=== PATIENT | male | born 2000 | race Hispanic/Latino ===

== ENCOUNTER 2023-03-23 22:33 | Inpatient (IN) | payer OTHER, MEDICAID, SELFPAY ==
[2023-03-23] VITALS (15 sets, daily range): BP systolic 102–177; BP diastolic 58–121; PULSE 109–133; RESP 4–25; TEMP 35.9; O2SAT 51–96
--- NOTE | 2023-03-23 22:44 | ED.GENADULT ---
HPI - General Adult General Chief complaint: Unresponsive Stated complaint: syncope/poss seizure Time Seen by Provider: 03/23/23 22:44 Source: other (Friend) Mode of arrival: Family Vehicle Limitations: other (Unconscious) History of Present Illness HPI narrative: Initially patient unable to provide any HPI review of systems. He arrives by private vehicle driven by a friend. It was reported that the friend in the patient were in the same house. The friend came down the stairs and found the patient sitting on the couch. Was unresponsive. Was no signs of trauma. Initially the patient's friend thought that he was having a seizure although the patient has no history of seizures. Upon arrival the patient had to be extricated from the car by nursing staff. Was brought immediately back to the resuscitation room. Patient unresponsive, vomiting, cyanotic in color and apneic. Related Data Allergies Allergy/AdvReac Type Severity Reaction Status Date / Time Sulfa (Sulfonamide Allergy Verified 03/23/23 23:04 Antibiotics) Review of Systems Review of Systems ROS Unobtainable: Unobtainable due to medical condition Patient History Social History Smoking Status: Never smoker Exam Initial Vital Signs Initial Vital Signs: Vital Signs Temperature 96.7 F L 03/23/23 22:42 Pulse Rate 133 H 03/23/23 22:42 Respiratory Rate 4 L 03/23/23 22:42 Blood Pressure 176/121 H 03/23/23 22:42 Pulse Oximetry 51 L 03/23/23 22:42 Oxygen Delivery Method Room Air 03/23/23 22:42 Const General: ill appearing HENIA Head: other (Bruising to forehead that is nontender) Resp Other: Initially apneic Cardio Rate: tachycardic GI Inspection: non-distended Skin Other: Small bruise to forehead Neuro Other: Patient is nonresponsive Extrem Other: No gross deformities Course Orders Ordered: ED Orders 03/23/23 22:45 XR chest 1V Stat 03/23/23 22:50 Comprehensive Metabolic Panel Stat Ethanol (ETOH) Stat Lipase Stat 03/23/23 23:09 Complete Blood Count AUTO DIFF Stat 03/24/23 01:51 EKG-12 Lead Stat 03/24/23 02:46 Urine Drug Screen, Rapid Stat Sodium Chloride (Normal Saline 0.9%) 1,000 mls @ 125 mls/hr IV CONT DONG Last Admin: 03/23/23 23:12 Dose: 125 mls/hr Documented By: GRACIA Naloxone HCl 2 mg/ Sodium (Chloride) 500 mls @ 250 mls/hr IV TITRATE DONG; Protocol Last Admin: 03/24/23 02:55 Dose: 1 mg/hr, 250 mls/hr Documented By: Titration: 03/24/23 02:26 Dose: Infused Documented By: Admin: 03/24/23 00:26 Dose: 1 mg/hr, 250 mls/hr Documented By: LUCA Discontinued Medications Benzocaine (Benzocaine/Menthol 1 Hector Pkt) 1 each PO NOW ONE Stop: 03/24/23 02:55 Last Admin: 03/24/23 03:05 Dose: 1 each Documented By: GRACIA Piperacillin Sod/Tazobactam (Sod 4.5 gm/ Sodium Chloride) 100 mls @ 200 mls/hr IV NOW ONE Stop: 03/24/23 00:20 Last Infusion: 03/24/23 01:18 Dose: Infused Documented By: Admin: 03/24/23 00:34 Dose: 200 mls/hr Documented By: LUCA Naloxone HCl (Naloxone 1 Mg/Ml Syringe) 2 mg IV NOW ONE Stop: 03/23/23 22:45 Last Admin: 03/23/23 22:45 Dose: 2 mg Documented By: GRACIA Naloxone HCl (Naloxone 1 Mg/Ml Syringe) 2 mg IV NOW ONE Stop: 03/24/23 00:14 Last Admin: 03/24/23 00:15 Dose: 2 mg Documented By: LUCA Ondansetron HCl (Ondansetron 4 Mg/2 Ml Inj) 4 mg IV NOW ONE Stop: 03/23/23 22:45 Last Admin: 03/23/23 22:45 Dose: 4 mg Documented By: GRACIA Ondansetron HCl (Ondansetron 4 Mg/2 Ml Inj) 4 mg IV NOW ONE Stop: 03/24/23 00:19 Last Admin: 03/24/23 00:26 Dose: 4 mg Documented By: LUCA Vital Signs Vital signs: Vital Signs - 8 hr 03/23/23 22:42 03/23/23 22:52 03/23/23 22:56 Temperature 96.7 F L Pulse Rate 133 H 118 H Respiratory Rate 4 L 23 Blood Pressure 176/121 H 173/110 H Pulse Oximetry 51 L 96 Oxygen Delivery Method Room Air Oxygen Flow Rate 03/23/23 22:56 03/23/23 23:00 03/23/23 23:00 Temperature Pulse Rate 117 H 124 H Respiratory Rate 23 20 Blood Pressure 177/106 H Pulse Oximetry 91 92 Oxygen Delivery Method Oxygen Flow Rate 03/23/23 23:05 03/23/23 23:05 03/23/23 23:10 Temperature Pulse Rate 119 H 113 H Respiratory Rate 21 21 Blood Pressure 138/87 Pulse Oximetry 89 L 96 Oxygen Delivery Method Nasal Cannula Non -Rebreather Oxygen Flow Rate 2 15 03/23/23 23:10 03/23/23 23:15 03/23/23 23:15 Temperature Pulse Rate 110 H Respiratory Rate 21 Blood Pressure 130/81 144/86 H Pulse Oximetry 93 Oxygen Delivery Method Oxygen Flow Rate 03/23/23 23:21 03/23/23 23:21 03/23/23 23:25 Temperature Pulse Rate 109 H 111 H Respiratory Rate 21 17 Blood Pressure 102/61 Pulse Oximetry 94 91 Oxygen Delivery Method Oxygen Flow Rate 03/23/23 23:25 03/23/23 23:30 03/23/23 23:30 Temperature Pulse Rate 113 H Respiratory Rate 22 Blood Pressure 130/77 133/84 Pulse Oximetry 91 Oxygen Delivery Method Oxygen Flow Rate 03/23/23 23:35 03/23/23 23:35 03/23/23 23:41 Temperature Pulse Rate 119 H 119 H Respiratory Rate 21 25 H Blood Pressure 136/84 Pulse Oximetry 92 91 Oxygen Delivery Method Oxygen Flow Rate 03/23/23 23:41 03/23/23 23:46 03/23/23 23:46 Temperature Pulse Rate 119 H Respiratory Rate 19 Blood Pressure 122/58 L 138/80 Pulse Oximetry 88 L Oxygen Delivery Method Oxygen Flow Rate 03/23/23 23:50 03/23/23 23:50 03/23/23 23:55 Temperature Pulse Rate 117 H 116 H Respiratory Rate 17 20 Blood Pressure 131/60 Pulse Oximetry 93 92 Oxygen Delivery Method Oxygen Flow Rate 03/23/23 23:55 03/24/23 00:00 03/24/23 00:00 Temperature Pulse Rate 126 H Respiratory Rate 25 H Blood Pressure 129/63 114/57 L Pulse Oximetry 89 L Oxygen Delivery Method Oxygen Flow Rate 03/24/23 00:05 03/24/23 00:05 03/24/23 00:10 Temperature Pulse Rate 121 H 123 H Respiratory Rate 21 24 Blood Pressure 123/90 Pulse Oximetry 90 L 89 L Oxygen Delivery Method Oximask Oxygen Flow Rate 6 03/24/23 00:10 03/24/23 00:15 03/24/23 00:15 Temperature Pulse Rate 123 H Respiratory Rate Blood Pressure 120/69 147/70 H Pulse Oximetry 87 L Oxygen Delivery Method Oxygen Flow Rate 03/24/23 00:30 03/24/23 00:30 03/24/23 00:45 Temperature Pulse Rate 123 H 122 H Respiratory Rate 20 32 H Blood Pressure 123/73 Pulse Oximetry 97 97 Oxygen Delivery Method Oxygen Flow Rate 03/24/23 00:45 03/24/23 01:00 03/24/23 01:00 Temperature Pulse Rate 121 H Respiratory Rate 36 H Blood Pressure 124/72 123/68 Pulse Oximetry 93 Oxygen Delivery Method Oxygen Flow Rate 03/24/23 01:15 03/24/23 01:15 03/24/23 01:30 Temperature Pulse Rate 117 H 116 H Respiratory Rate 29 H 37 H Blood Pressure 126/65 Pulse Oximetry 95 93 Oxygen Delivery Method Oximask Oxygen Flow Rate 03/24/23 01:30 03/24/23 01:45 03/24/23 01:45 Temperature Pulse Rate 116 H Respiratory Rate 35 H Blood Pressure 127/70 128/66 Pulse Oximetry 93 Oxygen Delivery Method Oxygen Flow Rate 03/24/23 02:00 03/24/23 02:00 03/24/23 02:30 Temperature Pulse Rate 120 H Respiratory Rate 36 H Blood Pressure 132/81 119/74 Pulse Oximetry 96 Oxygen Delivery Method Oxygen Flow Rate 03/24/23 02:30 Temperature Pulse Rate 119 H Respiratory Rate 35 H Blood Pressure Pulse Oximetry 93 Oxygen Delivery Method Oxygen Flow Rate Medical Decision Making Lab Data Lab results reviewed: Yes I reviewed the patient's lab results. 03/23/23 23:09 03/23/23 22:50 Labs: Lab Results 03/23/23 03/23/23 03/24/23 Range/Units 22:50 23:09 02:46 WBC 14.1 H (4.5-11.0) X10^3/uL RBC 5.33 (4.5-5.9) X10^6/uL Hgb 16.6 (13.5-17.5) g/dL Hct 49.2 (41-53) % MCV 92.2 (80-100) fL MCH 31.1 (26-34) PG MCHC 33.7 (30-36) % RDW 13.2 (11.6-14.8) % Plt Count 328 (150-400) X10^3/uL Neut % (Auto) 45.8 L (50-75) % Lymph % (Auto) 50.2 H (25-40) % [place] % (Auto) 3.8 (3-14) % Eos % (Auto) 0.1 L (2-4) % Baso % (Auto) 0.1 (0-2) % Neut # (Auto) 6500 (7222-4891) /uL Lymph # (Auto) 7100 H (6403-5085) /uL [place] # (Auto) 500 (0-900) /uL Eos # (Auto) 0 (0-450) /uL Baso # (Auto) 0 (0-100) /uL Sodium 138 (137-145) mmol/L Potassium 3.6 (3.4-5.1) mmol/L Chloride 102 (98-107) mmol/L Carbon Dioxide 24 (22-32) mmol/L BUN 15 (9-20) mg/dL Creatinine 1.20 (0.66-1.25) mg/dL Estimated GFR > 60 (>60) mL/min BUN/Creatinine Ratio 12.5 (6-22) Glucose 255 H (70-100) mg/dL Calcium 8.7 (8.4-10.2) mg/dL Total Bilirubin 0.5 (0.2-1.3) mg/dL AST 106 H (17-59) IU/L ALT 167 H (<50) IU/L Alkaline Phosphatase 72 (38-126) U/L Total Protein 7.2 (6.3-8.2) g/dL Albumin 4.2 (3.5-5.0) g/dL Globulin 3.0 (1.7-4.1) g/dL Albumin/Globulin Ratio 1.4 (1.0-2.8) Lipase 73 (23-300) U/L U Opiates 300ng/mL cut Negative (Negative) Ur Oxycodone Screen Negative (Negative) Urine Methadone Screen Negative (Negative) Ur Barbiturates Screen Negative (Negative) U Tricyclic Antidepress Negative (Negative) Ur Phencyclidine Scrn Negative (Negative) Ur Amphetamines Screen Negative (Negative) U Methamphetamines Scrn Negative (Negative) Ur MDMA Scrn (Ecstasy) Negative (Negative) U Benzodiazepines Scrn Negative (Negative) Urine Cocaine Screen Negative (Negative) U Marijuana (THC) Screen Positive H (Negative) Urine pH Normal (Normal) Urine Specific [place] Normal (Normal) Ethyl Alcohol < 10 ( - 10) mg/dL Ur Creatinine Normal (Normal) Imaging Data Chest x-ray: Radiologist's Impression: PROCEDURE: XR CHEST 1V INDICATIONS: overdose and hypoxia TECHNIQUE: One view of the chest was acquired. COMPARISON: None. FINDINGS: Surgical changes and devices: None. Lungs and pleura: Lungs are clear. No pleural effusions or pneumothorax. Mediastinum: Mediastinal contours appear normal. Heart size is normal. Bones and chest wall: No suspicious bony lesions. Overlying soft tissues appear unremarkable. IMPRESSION: No acute cardiopulmonary abnormality is seen. ECG Data Attestation: I personally reviewed and interpreted this ECG as follows: Interpretation: Sinus tachycardia Ventricular rate 119 Normal axis Normal QRS Normal QTC No ST T wave changes MDM Narrative Medical decision making narrative: Patient initially brought to the resuscitation room. Was found to be apneic, vomiting and cyanotic in color. Respirations were immediately assisted with bag-valve mask. A nasal trumpet was placed. IV access was started. Initial O2 saturations in the 50s. 2 mg of Narcan were administered IV. Very shortly afterwards the patient became awake. Breathing on his own. Continues to have vomiting. We were then able to talk with the patient. He has no history of seizures. He does not remember the event. He states that he took ?pills? but could not specifically remember what he took. This is never happened to him in the past. He is remained hypoxic requiring oxygen by nasal cannula and occasionally by non-rebreather. He continues to cough up pink frothy sputum. Patient did have another episode of vomiting and coughing up pink frothy sputum. He continues to require oxygen to maintain saturations greater than 90%. Patient states he started to become more sleepy. His oxygen was now dropping below 90%. He was given another dose of Narcan and will start him on a Narcan drip. Patient was also given a dose of Zosyn for presumed aspiration. Patient has been stable since being started on a Narcan drip. Patient obviously took some sort of opioid in a pill form but either does not know what he took or will not say. I have low suspicion that this was seizure activity. Patient is still requiring oxygen. Discussed the case with Dr. Handy hospitalist on-call and we will admit for further evaluation and treatment. Critical Care Time Critical Care Time Critical Care Time: Yes Total Critical Care Time: 45 Attestation: The high probability of a clinically significant, sudden or life threatening deterioration of the [respiratory, neurologic, cardiovascular] system(s) required my full and direct attention, intervention and personal management. The aggregate critical care time was [45] minutes. This time is in addition to time spent performing reported procedures but includes the following: [x] Data Review and interpretation [x] Patient assessment and monitoring of vital signs [x Documentation [x] Medication orders and management Discharge Plan Departure Patient Disposition: Admitted As Inpatient Clinical Impression: Drug overdose, Hypoxia, Aspiration into respiratory tract Admit Date/Time: 03/24/23 03:48 Admit Provider: Reese Serna
[2023-03-23] MEDS: ONDANSETRON 4 MG/2 ML INJ IV (22:45)
[2023-03-23] MEDS: NALOXONE 1 MG/ML SYRINGE 2 MG IV (22:45)
--- NOTE | 2023-03-23 22:45 | DI.RAD.S_ITS ---
PROCEDURE: XR CHEST 1V INDICATIONS: overdose and hypoxia TECHNIQUE: One view of the chest was acquired. COMPARISON: None. FINDINGS: Surgical changes and devices: None. Lungs and pleura: Lungs are clear. No pleural effusions or pneumothorax. Mediastinum: Mediastinal contours appear normal. Heart size is normal. Bones and chest wall: No suspicious bony lesions. Overlying soft tissues appear unremarkable. IMPRESSION: No acute cardiopulmonary abnormality is seen. Dictated by: Sonny Fournier M.D. on 03/24/2023 at 0:01 Approved by: Sonny Fournier M.D. on 03/24/2023 at 0:02
--- NOTE | 2023-03-23 22:53 | RT ---
Responded to an unconcious male with saturations in the 50's. Pt was given Narcan and woke up and immediately started to vomiting and spitting up blood. Pt was put on a NC at 6lpm. Sats only came up to low 80's so a NRB at 15lpm was put on. Sats finally came up to low to mid 90's. Pt was able to communicate and keep saturations up.
[2023-03-23] MEDS: SODIUM CHLORIDE 0.9% 1,000 ML 125 ML IV (23:12)
[2023-03-23 23:21] LABS: Add Manual Diff / Slide Review NO; Basophils Absolute Auto 0 /uL (0-100); Basophils Percent Auto 0.1 % (0-2); Eosinophils Absolute Auto 0 /uL (0-450); Eosinophils Percent Auto 0.1 % (2-4); Hematocrit 49.2 % (41-53); Hemoglobin 16.6 g/dL (13.5-17.5); Lymphocytes Absolute Auto 7100 /uL (1100-4500); Lymphocytes Percent Auto 50.2 % (25-40); Mean Corpuscular HGB Conc 33.7 % (30-36); Mean Corpuscular Hemoglobin 31.1 PG (26-34); Mean Corpuscular Volume 92.2 fL (80-100); Monocytes Absolute Auto 500 /uL (0-900); Monocytes Percent Auto 3.8 % (3-14); Neutrophils Absolute Auto 6500 /uL (1500-7000); Neutrophils Percent Auto 45.8 % (50-75); Platelet Count 328 X10^3/uL (150-400); Red Blood Cell Count 5.33 X10^6/uL (4.5-5.9); Red Cell Distribution Width 13.2 % (11.6-14.8); White Blood Cell Count 14.1 X10^3/uL (4.5-11.0)
[2023-03-23 23:37] LABS: Alanine Aminotransferase 167 IU/L (<50); Albumin 4.2 g/dL (3.5-5.0); Albumin Globulin Ratio 1.4 (1.0-2.8); Alkaline Phosphatase 72 U/L (38-126); Aspartate Aminotransferase 106 IU/L (17-59); BUN Creatinine Ratio 12.5 (6-22); Bilirubin Total 0.5 mg/dL (0.2-1.3); Blood Urea Nitrogen 15 mg/dL (9-20); Calcium 8.7 mg/dL (8.4-10.2); Carbon Dioxide 24 mmol/L (22-32); Chloride 102 mmol/L (98-107); Estimated Glomerular Filt Rate > 60 mL/min (>60); Ethanol (ETOH) < 10 mg/dL; Glucose 255 mg/dL (70-100); HEMOLYSIS 36 (0-50); Lipase 73 U/L (23-300); Potassium 3.6 mmol/L (3.4-5.1); Sodium 138 mmol/L (137-145); Total Protein 7.2 g/dL (6.3-8.2)
[2023-03-24] VITALS (65 sets, daily range): BP systolic 114–147; BP diastolic 57–90; PULSE 105–133; RESP 16–57; TEMP 37–37.5; O2SAT 87–99; BMI 29.0
[2023-03-24] MEDS: NALOXONE 1 MG/ML SYRINGE 2 MG IV (00:15)
[2023-03-24] MEDS: NALOXONE 2 MG in SODIUM CHLORIDE 0.9% 500 ML 250 MG IV ×4 (00:26→08:19)
[2023-03-24] MEDS: ONDANSETRON 4 MG/2 ML INJ IV ×2 (00:26→05:48)
[2023-03-24] MEDS: PIPERACILLIN/TAZO 4.5 GM in SODIUM CHLORIDE 0.9% 100 ML IV (00:34)
[2023-03-24] MEDS: BENZOCAINE/MENTHOL 1 LOZ PKT 1 EACH PO ×4 (03:05→19:56)
[2023-03-24 03:23] LABS: UR Morphine/Opiate cutoff 300 Negative (Negative); Ur Creatinine Normal (Normal); Ur Specific Gravity Normal (Normal); Urine Amphetamines Negative (Negative); Urine Cocaine Negative (Negative); Urine Tetrahydrocannabinol Positive (Negative); Urine pH Normal (Normal)
[2023-03-24 03:24] LABS: Urine Barbiturates Negative (Negative); Urine Benzodiazepines Negative (Negative); Urine MDMA Negative (Negative); Urine Methadone Negative (Negative); Urine Methamphetamines Negative (Negative); Urine Oxycodone Negative (Negative); Urine Phencyclidine Negative (Negative); Urine Tricyclic Antidepressant Negative (Negative)
--- NOTE | 2023-03-24 04:34 | PM.HP.1 ---
History of Present Illness History of Present Illness Date Patient Seen: 03/24/23 Chief complaint: syncope/poss seizure Narrative: 30 y/o brought by a friend after he became unresponsive from drugs that he took. In the ED hypoxemic, requires 5-6 L of oxygen. Suspected synthetic narcotic as the toxscreen positive only for pot. In the ED he was doing better after the Narcan but improvement did not last too long so started on Narcan drip. Borderline tachycardic, not hypotensive. [facility] Social History Smoking Status: Never smoker Comment: he rarely takes drugs Lives alone [employer] Home Medications and Allergies Home Medications Medication Instructions Recorded Confirmed Type No Known Home Medications 03/24/23 03/24/23 History Allergies Allergy/AdvReac Type Severity Reaction Status Date / Time Sulfa (Sulfonamide Allergy Verified 03/23/23 23:04 Antibiotics) Review of Systems Constitutional Comments: w/o chills or fever Cardiovascular Comments: w/o palpitations, had episodic chest pressure Respiratory Comments: short of breath Gastrointestinal Comments: w/o complaints Genitourinary Comments: w/o complaints Neurologic Comments: w/o muscle weakness or numbness Psychiatric Comments: w/o Hx of anxiety and depression Exam Vital Signs (past 8 hours): - 03/23/23 22:42 03/23/23 22:52 03/23/23 22:56 Temperature 96.7 F L Pulse Rate 133 H 118 H Respiratory Rate 4 L 23 Blood Pressure 176/121 H 173/110 H Pulse Oximetry 51 L 96 Oxygen Delivery Method Room Air Oxygen Flow Rate 03/23/23 22:56 03/23/23 23:00 03/23/23 23:00 Temperature Pulse Rate 117 H 124 H Respiratory Rate 23 20 Blood Pressure 177/106 H Pulse Oximetry 91 92 Oxygen Delivery Method Oxygen Flow Rate 03/23/23 23:05 03/23/23 23:05 03/23/23 23:10 Temperature Pulse Rate 119 H 113 H Respiratory Rate 21 21 Blood Pressure 138/87 Pulse Oximetry 89 L 96 Oxygen Delivery Method Nasal Cannula Non -Rebreather Oxygen Flow Rate 2 15 03/23/23 23:10 03/23/23 23:15 03/23/23 23:15 Temperature Pulse Rate 110 H Respiratory Rate 21 Blood Pressure 130/81 144/86 H Pulse Oximetry 93 Oxygen Delivery Method Oxygen Flow Rate 03/23/23 23:21 03/23/23 23:21 03/23/23 23:25 Temperature Pulse Rate 109 H 111 H Respiratory Rate 21 17 Blood Pressure 102/61 Pulse Oximetry 94 91 Oxygen Delivery Method Oxygen Flow Rate 03/23/23 23:25 03/23/23 23:30 03/23/23 23:30 Temperature Pulse Rate 113 H Respiratory Rate 22 Blood Pressure 130/77 133/84 Pulse Oximetry 91 Oxygen Delivery Method Oxygen Flow Rate 03/23/23 23:35 03/23/23 23:35 03/23/23 23:41 Temperature Pulse Rate 119 H 119 H Respiratory Rate 21 25 H Blood Pressure 136/84 Pulse Oximetry 92 91 Oxygen Delivery Method Oxygen Flow Rate 03/23/23 23:41 03/23/23 23:46 03/23/23 23:46 Temperature Pulse Rate 119 H Respiratory Rate 19 Blood Pressure 122/58 L 138/80 Pulse Oximetry 88 L Oxygen Delivery Method Oxygen Flow Rate 03/23/23 23:50 03/23/23 23:50 03/23/23 23:55 Temperature Pulse Rate 117 H 116 H Respiratory Rate 17 20 Blood Pressure 131/60 Pulse Oximetry 93 92 Oxygen Delivery Method Oxygen Flow Rate 03/23/23 23:55 03/24/23 00:00 03/24/23 00:00 Temperature Pulse Rate 126 H Respiratory Rate 25 H Blood Pressure 129/63 114/57 L Pulse Oximetry 89 L Oxygen Delivery Method Oxygen Flow Rate 03/24/23 00:05 03/24/23 00:05 03/24/23 00:10 Temperature Pulse Rate 121 H 123 H Respiratory Rate 21 24 Blood Pressure 123/90 Pulse Oximetry 90 L 89 L Oxygen Delivery Method Oximask Oxygen Flow Rate 6 03/24/23 00:10 03/24/23 00:15 03/24/23 00:15 Temperature Pulse Rate 123 H Respiratory Rate Blood Pressure 120/69 147/70 H Pulse Oximetry 87 L Oxygen Delivery Method Oxygen Flow Rate 03/24/23 00:30 03/24/23 00:30 03/24/23 00:45 Temperature Pulse Rate 123 H 122 H Respiratory Rate 20 32 H Blood Pressure 123/73 Pulse Oximetry 97 97 Oxygen Delivery Method Oxygen Flow Rate 15 03/24/23 00:45 03/24/23 01:00 03/24/23 01:00 Temperature Pulse Rate 121 H Respiratory Rate 36 H Blood Pressure 124/72 123/68 Pulse Oximetry 93 Oxygen Delivery Method Oxygen Flow Rate 03/24/23 01:15 03/24/23 01:15 03/24/23 01:30 Temperature Pulse Rate 117 H 116 H Respiratory Rate 29 H 37 H Blood Pressure 126/65 Pulse Oximetry 95 93 Oxygen Delivery Method Oximask Oxygen Flow Rate 10 03/24/23 01:30 03/24/23 01:45 03/24/23 01:45 Temperature Pulse Rate 116 H Respiratory Rate 35 H Blood Pressure 127/70 128/66 Pulse Oximetry 93 Oxygen Delivery Method Oxygen Flow Rate 03/24/23 02:00 03/24/23 02:00 03/24/23 02:30 Temperature Pulse Rate 120 H Respiratory Rate 36 H Blood Pressure 132/81 119/74 Pulse Oximetry 96 Oxygen Delivery Method Oxygen Flow Rate 03/24/23 02:30 Temperature Pulse Rate 119 H Respiratory Rate 35 H Blood Pressure Pulse Oximetry 93 Oxygen Delivery Method Oxygen Flow Rate Oxygen Delivery Method Oximask Oxygen Flow Rate 10 Const Other: Laying in bed with oxygen mask on, in no distress, appears sleepy [facility] Other: normocephalic Eyes Other: equal pupils, EOMI Resp Other: Decreased respiratory effort Cardio Other: tachycardic, regular GI Other: abdomen not distended or tender Skin Other: w/o rashes Neuro Other: w/o focal deficits Extrem Other: w/o swelling Psych Other: lucid Objective ECG Impression: Sinus tachycardia, w/o ischemic changes Labs 03/23/23 23:09 03/23/23 22:50 Labs: Laboratory Results - last 24 hr 03/23/23 03/23/23 03/24/23 22:50 23:09 02:46 WBC 14.1 H RBC 5.33 Hgb 16.6 Hct 49.2 MCV 92.2 MCH 31.1 MCHC 33.7 RDW 13.2 Plt Count 328 Neut % (Auto) 45.8 L Lymph % (Auto) 50.2 H [place] % (Auto) 3.8 Eos % (Auto) 0.1 L Baso % (Auto) 0.1 Neut # (Auto) 6500 Lymph # (Auto) 7100 H [place] # (Auto) 500 Eos # (Auto) 0 Baso # (Auto) 0 Sodium 138 Potassium 3.6 Chloride 102 Carbon Dioxide 24 BUN 15 Creatinine 1.20 Estimated GFR > 60 BUN/Creatinine Ratio 12.5 Glucose 255 H Calcium 8.7 Total Bilirubin 0.5 AST 106 H ALT 167 H Alkaline Phosphatase 72 Total Protein 7.2 Albumin 4.2 Globulin 3.0 Albumin/Globulin Ratio 1.4 Lipase 73 U Opiates 300ng/mL cut Negative Ur Oxycodone Screen Negative Urine Methadone Screen Negative Ur Barbiturates Screen Negative U Tricyclic Antidepress Negative Ur Phencyclidine Scrn Negative Ur Amphetamines Screen Negative U Methamphetamines Scrn Negative Ur MDMA Scrn (Ecstasy) Negative U Benzodiazepines Scrn Negative Urine Cocaine Screen Negative U Marijuana (THC) Screen Positive H Urine pH Normal Urine Specific [place] Normal Ethyl Alcohol < 10 Ur Creatinine Normal Assessment & Plan Assessment and plan (1) Drug overdose: Status: Acute (2) Acute hypoxemic respiratory failure: Status: Acute (3) Aspiration into respiratory tract: Status: Acute Assessment & Plan narrative: 1. Drug OD possibly fentanyl - telemetry monitoring in ICU, Narcan drip 2. Acute Hypoxemic Respiratory Failure - Decreased respiratory drive Without Hx of lung disease Oxygen prn No need for BiPAP for now Aspiration could be contributing 3. Aspiration - CXR negative but too early Likely pneumonitis / PNA Empiric Augmentin 4. Sinus Tachycardia - w/o ischemic changes on ECG DVT prophylaxis - SCDs
--- NOTE | 2023-03-24 05:56 | PC.NURSE ---
Pt called into room states he was going to throw up. gave emesis bag and received order for zofran, pt continues with red emesis. Pt removed oxymask during vomiting episode and Spo2 sats dropped to 80% on Room air. Pt able to recover with oximask at 4L. assisted pt to commode. HR increased to 145 with transfer to commode. Pt reports feeling weak during this period. Denies dizziness or lightheadedness.
[2023-03-24 06:16] LABS: Add Manual Diff / Slide Review NO; Basophils Absolute Auto 0 /uL (0-100); Basophils Percent Auto 0.3 % (0-2); Eosinophils Absolute Auto 0 /uL (0-450); Hematocrit 45.2 % (41-53); Hemoglobin 15.3 g/dL (13.5-17.5); Lymphocytes Absolute Auto 700 /uL (1100-4500); Lymphocytes Percent Auto 4.7 % (25-40); Mean Corpuscular HGB Conc 33.9 % (30-36); Mean Corpuscular Hemoglobin 30.7 PG (26-34); Mean Corpuscular Volume 90.5 fL (80-100); Monocytes Absolute Auto 600 /uL (0-900); Monocytes Percent Auto 4.1 % (3-14); Neutrophils Absolute Auto 13400 /uL (1500-7000); Neutrophils Percent Auto 90.9 % (50-75); Platelet Count 265 X10^3/uL (150-400); Red Blood Cell Count 4.99 X10^6/uL (4.5-5.9); Red Cell Distribution Width 13.2 % (11.6-14.8); White Blood Cell Count 14.7 X10^3/uL (4.5-11.0)
--- NOTE | 2023-03-24 07:51 | P.HP_ITS ---
History of Present Illness History of Present Illness Date Patient Seen: 03/24/23 Chief complaint: syncope/poss seizure Narrative: 30 y/o brought by a friend after he became unresponsive from drugs that he took. In the ED hypoxemic, requires 5-6 L of oxygen. Suspected synthetic narcotic as the toxscreen positive only for pot. In the ED he was doing better after the Narcan but improvement did not last too long so started on Narcan drip. Borderline tachycardic, not hypotensive. [facility] Social History household members: significant other and children Smoking Status: Former smoker alcohol intake: current Meds Home Medications and Allergies Home Medications Medication Instructions Recorded Confirmed Type No Known Home Medications 03/24/23 03/24/23 History Allergies Allergy/AdvReac Type Severity Reaction Status Date / Time Sulfa (Sulfonamide Allergy Verified 03/23/23 23:04 Antibiotics) Review of Systems Constitutional Comments: w/o chills or fever Cardiovascular Comments: w/o palpitations, had episodic chest pressure Respiratory Comments: short of breath Gastrointestinal Comments: w/o complaints Genitourinary Comments: w/o complaints Neurologic Comments: w/o muscle weakness or numbness Psychiatric Comments: w/o Hx of anxiety and depression Exam Vital Signs (past 8 hours): - 03/23/23 23:55 03/23/23 23:55 03/24/23 00:00 Pulse Rate 116 H Respiratory Rate 20 Blood Pressure 129/63 114/57 L Pulse Oximetry 92 Oxygen Delivery Method Oxygen Flow Rate 03/24/23 00:00 03/24/23 00:05 03/24/23 00:05 Pulse Rate 126 H 121 H Respiratory Rate 25 H 21 Blood Pressure 123/90 Pulse Oximetry 89 L 90 L Oxygen Delivery Method Oximask Oxygen Flow Rate 6 03/24/23 00:10 03/24/23 00:10 03/24/23 00:15 Pulse Rate 123 H 123 H Respiratory Rate 24 Blood Pressure 120/69 Pulse Oximetry 89 L 87 L Oxygen Delivery Method Oxygen Flow Rate 03/24/23 00:15 03/24/23 00:30 03/24/23 00:30 Pulse Rate 123 H Respiratory Rate 20 Blood Pressure 147/70 H 123/73 Pulse Oximetry 97 Oxygen Delivery Method Oxygen Flow Rate 03/24/23 00:45 03/24/23 00:45 03/24/23 01:00 Pulse Rate 122 H 121 H Respiratory Rate 32 H 36 H Blood Pressure 124/72 Pulse Oximetry 97 93 Oxygen Delivery Method Oxygen Flow Rate 03/24/23 01:00 03/24/23 01:15 03/24/23 01:15 Pulse Rate 117 H Respiratory Rate 29 H Blood Pressure 123/68 126/65 Pulse Oximetry 95 Oxygen Delivery Method Oximask Oxygen Flow Rate 10 03/24/23 01:30 03/24/23 01:30 03/24/23 01:45 Pulse Rate 116 H 116 H Respiratory Rate 37 H 35 H Blood Pressure 127/70 Pulse Oximetry 93 93 Oxygen Delivery Method Oxygen Flow Rate 03/24/23 01:45 03/24/23 02:00 03/24/23 02:00 Pulse Rate 120 H Respiratory Rate 36 H Blood Pressure 128/66 132/81 Pulse Oximetry 96 Oxygen Delivery Method Oxygen Flow Rate 03/24/23 02:30 03/24/23 02:30 03/24/23 03:00 Pulse Rate 119 H 120 H Respiratory Rate 35 H 34 H Blood Pressure 119/74 Pulse Oximetry 93 92 Oxygen Delivery Method Oxygen Flow Rate 03/24/23 03:00 03/24/23 03:30 03/24/23 03:30 Pulse Rate 122 H Respiratory Rate 33 H Blood Pressure 126/78 130/83 Pulse Oximetry 93 Oxygen Delivery Method Oximask Oxygen Flow Rate 6 03/24/23 04:00 03/24/23 04:00 03/24/23 04:30 Pulse Rate 118 H Respiratory Rate 34 H Blood Pressure 129/67 120/75 Pulse Oximetry 95 Oxygen Delivery Method Oxygen Flow Rate 03/24/23 04:30 03/24/23 05:00 03/24/23 05:00 Pulse Rate 118 H 115 H Respiratory Rate 40 H 36 H Blood Pressure 127/73 Pulse Oximetry 90 L 94 Oxygen Delivery Method Oximask Oxygen Flow Rate 5 03/24/23 05:30 03/24/23 06:00 03/24/23 06:00 Pulse Rate 118 H 133 H 120 H Respiratory Rate 22 18 Blood Pressure 129/79 Pulse Oximetry 94 91 Oxygen Delivery Method Oximask Simple Mask Oxygen Flow Rate 4 5 03/24/23 06:30 03/24/23 07:00 03/24/23 07:00 Pulse Rate 119 H 119 H Respiratory Rate 22 43 H Blood Pressure 118/57 L Pulse Oximetry 92 93 Oxygen Delivery Method Oxygen Flow Rate 5 Oxygen Delivery Method Simple Mask Oxygen Flow Rate 5 Const Other: Laying in bed with oxygen NC in place, anxious HENMT Other: normocephalic Eyes Other: equal pupils, EOMI Resp Other: coarse breath sounds bilaterally Cardio Other: tachycardic, regular GI Other: abdomen not distended or tender Skin Other: w/o rashes Neuro Other: w/o focal deficits Extrem Other: w/o swelling Psych Other: lucid Objective Labs 03/24/23 06:10 03/24/23 08:35 Labs: Laboratory Results - last 24 hr 03/23/23 03/23/23 03/24/23 22:50 23:09 02:46 WBC 14.1 H RBC 5.33 Hgb 16.6 Hct 49.2 MCV 92.2 MCH 31.1 MCHC 33.7 RDW 13.2 Plt Count 328 Neut % (Auto) 45.8 L Lymph % (Auto) 50.2 H [place] % (Auto) 3.8 Eos % (Auto) 0.1 L Baso % (Auto) 0.1 Neut # (Auto) 6500 Lymph # (Auto) 7100 H [place] # (Auto) 500 Eos # (Auto) 0 Baso # (Auto) 0 Sodium 138 Potassium 3.6 Chloride 102 Carbon Dioxide 24 BUN 15 Creatinine 1.20 Estimated GFR > 60 BUN/Creatinine Ratio 12.5 Glucose 255 H Calcium 8.7 Total Bilirubin 0.5 AST 106 H ALT 167 H Alkaline Phosphatase 72 Total Protein 7.2 Albumin 4.2 Globulin 3.0 Albumin/Globulin Ratio 1.4 Lipase 73 U Opiates 300ng/mL cut Negative Ur Oxycodone Screen Negative Urine Methadone Screen Negative Ur Barbiturates Screen Negative U Tricyclic Antidepress Negative Ur Phencyclidine Scrn Negative Ur Amphetamines Screen Negative U Methamphetamines Scrn Negative Ur MDMA Scrn (Ecstasy) Negative U Benzodiazepines Scrn Negative Urine Cocaine Screen Negative U Marijuana (THC) Screen Positive H Urine pH Normal Urine Specific [place] Normal Ethyl Alcohol < 10 Ur Creatinine Normal 03/24/23 06:10 WBC 14.7 H RBC 4.99 Hgb 15.3 Hct 45.2 MCV 90.5 MCH 30.7 MCHC 33.9 RDW 13.2 Plt Count 265 Neut % (Auto) 90.9 H D Lymph % (Auto) 4.7 L D [place] % (Auto) 4.1 Eos % (Auto) 0.0 L Baso % (Auto) 0.3 Neut # (Auto) 21083 H Lymph # (Auto) 700 L [place] # (Auto) 600 Eos # (Auto) 0 Baso # (Auto) 0 Sodium Potassium Chloride Carbon Dioxide BUN Creatinine Estimated GFR BUN/Creatinine Ratio Glucose Calcium Total Bilirubin AST ALT Alkaline Phosphatase Total Protein Albumin Globulin Albumin/Globulin Ratio Lipase U Opiates 300ng/mL cut Ur Oxycodone Screen Urine Methadone Screen Ur Barbiturates Screen U Tricyclic Antidepress Ur Phencyclidine Scrn Ur Amphetamines Screen U Methamphetamines Scrn Ur MDMA Scrn (Ecstasy) U Benzodiazepines Scrn Urine Cocaine Screen U Marijuana (THC) Screen Urine pH Urine Specific [place] Ethyl Alcohol Ur Creatinine Assessment & Plan Assessment & Plan narrative: # Acute Hypoxemic Respiratory Failure 2/2 aspiration PNA -CXR with bilateral infiltrates, procal at 3 -patient vomited large amounts before becoming apneic -Without Hx of lung disease -No need for BiPAP for now -continue zosyn -obtain CT chest # likely opioid overdose -possibly fentanyl laced in percocet patient took from friend -telemetry monitoring in ICU -Narcan drip now off # Sinus Tachycardia - w/o ischemic changes on ECG - possible due to anxiety - valium PRN DVT prophylaxis - SCDs Dispo: Pending improvement in PNA and O2 needs. 1-2 days.
--- NOTE | 2023-03-24 08:23 | PC.NURSE ---
Admit: Pt arrived via stretcher from ED at approximately 0800. Pt able to pivot to ICU bed [id number]. Pt fatigued, A&Ox4, states he took pain pills due to groin pain, stating, every winter, it just locks up for like hours and hurts so bad. Pt states he has not has this pain worked up outpatient. Lungs diminished, RR 25-30, states he can't take a full breath, 96% 5L NC, tachycardic 120-130, BP stable 133/84. Bruise on forehead and bridge of nose, pt unsure how he obtained bruise. Denies current pain. Provider notified of arrival. Call light within reach, pt 1:1 observation. Care ongoing, will continue to monitor.
[2023-03-24 09:14] LABS: Alanine Aminotransferase 147 IU/L (<50); Albumin 3.4 g/dL (3.5-5.0); Albumin Globulin Ratio 1.4 (1.0-2.8); Alkaline Phosphatase 43 U/L (38-126); Aspartate Aminotransferase 79 IU/L (17-59); BUN Creatinine Ratio 18.3 (6-22); Blood Urea Nitrogen 15 mg/dL (9-20); Calcium 8.3 mg/dL (8.4-10.2); Carbon Dioxide 23 mmol/L (22-32); Chloride 110 mmol/L (98-107); Estimated Glomerular Filt Rate > 60 mL/min (>60); Globulin 2.5 g/dL (1.7-4.1); Glucose 108 mg/dL (70-100); HEMOLYSIS 25 (0-50); Magnesium 1.5 mg/dL (1.6-2.3); Potassium 4.2 mmol/L (3.4-5.1); Sodium 139 mmol/L (137-145); Total Protein 5.9 g/dL (6.3-8.2)
--- NOTE | 2023-03-24 09:24 | DI.RAD.S_ITS ---
PROCEDURE: XR CHEST 1V INDICATIONS: hypoxia TECHNIQUE: One view of the chest was acquired. COMPARISON: [facility], CR, XR CHEST 1V, 03/23/2023, 22:46. FINDINGS: Surgical changes and devices: None. Lungs and pleura: Bilateral pulmonary opacities appear new or significantly more prominent when compared to the exam from the day prior. No pleural effusion or pneumothorax. Mediastinum: Mediastinal contours appear normal. Heart size is normal. Bones and chest wall: No suspicious bony lesions. Overlying soft tissues appear unremarkable. IMPRESSION: Diffuse bilateral pulmonary opacities are suspicious for pneumonia or edema. Approved by: Harry Bhat M.D. on 03/24/2023 at 10:20
[2023-03-24] MEDS: PIPERACILLIN/TAZO 3.375 GM in SODIUM CHLORIDE 0.9% 100 ML IV ×2 (09:31→18:55)
[2023-03-24] MEDS: MAGNESIUM SULFATE 4 GM/100 ML PIGGYBACK IV (09:31)
[2023-03-24 09:32] LABS: Procalcitonin 3.64 ng/mL (<0.5)
[2023-03-24 09:49] LABS: MRSA (Nasal) PCR Not Detected (Not Detect)
[2023-03-24] MEDS: MAGNESIUM OXIDE 400 MG TABLET PO (11:48)
--- NOTE | 2023-03-24 12:02 | DI.CT.S_ITS ---
PROCEDURE: CT ANGIO CHEST PE PROTOCOL INDICATIONS: aspiration pneumonia, rule out PE TECHNIQUE: After the administration of intravenous contrast, 2 mm thick sections acquired from the pulmonary apices to the posterior costophrenic angles. 3-dimensional maximum intensity projection (MIP) coronal and sagittal reformats were then acquired through the thorax. For radiation dose reduction, the following was used: automated exposure control, adjustment of mA and/or kV according to patient size. COMPARISON: None. FINDINGS: Cardiovascular and Mediastinum: Heart size is normal. No evidence of thoracic aortic aneurysm. Pulmonary vasculature is unremarkable. No hiatal hernia. Thyroid gland unremarkable. No evidence of pulmonary embolism, aortic dissection or aneurysm. Lungs and Pleural Spaces: Bilateral patchy pulmonary infiltrates involve both the upper and lower lobes bilaterally. No pleural effusion Lymph Nodes: No mediastinal, hilar or axillary adenopathy. Musculoskeletal: No evidence of rib fracture. Thoracic spine unremarkable. Chest wall and sternum intact. No lytic or blastic lesions. Upper abdomen: Visualized portions of the liver, spleen and kidneys are unremarkable. IMPRESSION: 1. Bilateral pulmonary infiltrates consistent with pneumonia. No pleural effusions. 2. No evidence of pulmonary embolism, aortic dissection or aneurysm Approved by: Arnav Quintero M.D. on 03/24/2023 at 14:34
[2023-03-24] MEDS: LIDOCAINE VISCOUS 2% 15 ML SOLUTION PO (13:09)
--- NOTE | 2023-03-24 13:18 | CM.DANOTE ---
Patient is a 30 yo male who was admitted on 03/24/23 for Accidental Overdose/pneumonia. Pt has [facility] HO and [facility] for insurance and no PCP. EMR was reviewed. Per MD, pt was found unresponsive and brought to ED by friend and required Narcan and was able to state he took pill from his friend for chronic pain that he thought was Percocet and likely had Fentanyl and now on Narcan drip and requiring oxygen and being treated for pneumonia as well. Per RN, pt denies any suicidal ideation and states he accidentally ingested medication that was not what he thought to self treat his leg pain. SW met bedside with pt and explained role and he confirms he lives in [place] with his fiance and 4 mo baby and he works at a local restaurant and is active and independent at baseline and drives. Pt confirms that he thinks he has [facility] for insurance and confirms that he is not established with PCP which is why he was self medicating with friend's medications for a chronic groin/leg pain. Pt denies S.I. and states he is agreeable to PCP list of contracted [facility] providers for ongoing f/u care and agreeable to not take medications that are not prescribed to him. Plan: SW to follow closely for providing PCP list to pt and to confirm no further discharge planning needs closer to d/c. ARMANDO Reynoso Discharge Planning/Care Management CM Discharge Assessment Start: 03/24/23 13:17 Freq: Status: Active Protocol: Document 03/24/23 13:17 BF (Rec: 03/24/23 13:18 BF [id number]) Discharge Planning Assessment Assigned Sink Maker ARMANDO Willoughby DPOA/Assigned Designee Name informally lacey Contreras Advance Directives? No Advance Directives on File No History Provided By Patient,Medical Record Has Patient been admitted in last 30 No days? Prior Living Arrangements House Household Members significant other,children Type of transporation used prior to Drives own vehicle admit Independent with ADL's Yes Is patient alert and oriented? Yes Caregiver for Another Yes: 4 mo baby Barriers to Discharge No Discharge Plan Home Transportation Arrangement Fiance to provide transport at d/c Referrals Initiated Other Additional Comment Gave [facility] contracted PCP list Whiteboard Updated in Patient Room with Yes name and ext. # of Sink Maker Review Status In Process Please Provide Date Initial DC 03/24/23 Assessment Was Performed Next Review Type Continued Stay Review
[2023-03-25] VITALS (15 sets, daily range): BP systolic 123–148; BP diastolic 70–88; PULSE 74–124; RESP 16–53; TEMP 36.1–38.1; O2SAT 93–97
[2023-03-25] MEDS: PIPERACILLIN/TAZO 3.375 GM in SODIUM CHLORIDE 0.9% 100 ML IV ×3 (01:30→18:00)
[2023-03-25] MEDS: BENZOCAINE/MENTHOL 1 LOZ PKT 1 EACH PO ×2 (06:42→20:06)
[2023-03-25 08:59] LABS: Add Manual Diff / Slide Review NO; Basophils Absolute Auto 0 /uL (0-100); Basophils Percent Auto 0.4 % (0-2); Eosinophils Absolute Auto 0 /uL (0-450); Eosinophils Percent Auto 0.3 % (2-4); Hematocrit 41.3 % (41-53); Hemoglobin 14.3 g/dL (13.5-17.5); Lymphocytes Absolute Auto 1400 /uL (1100-4500); Lymphocytes Percent Auto 12.3 % (25-40); Mean Corpuscular HGB Conc 34.5 % (30-36); Mean Corpuscular Hemoglobin 31.1 PG (26-34); Mean Corpuscular Volume 90.1 fL (80-100); Monocytes Absolute Auto 700 /uL (0-900); Monocytes Percent Auto 6.1 % (3-14); Neutrophils Absolute Auto 9000 /uL (1500-7000); Neutrophils Percent Auto 80.9 % (50-75); Platelet Count 211 X10^3/uL (150-400); Red Blood Cell Count 4.59 X10^6/uL (4.5-5.9); Red Cell Distribution Width 13.3 % (11.6-14.8); White Blood Cell Count 11.1 X10^3/uL (4.5-11.0)
[2023-03-25 09:08] LABS: Alanine Aminotransferase 124 IU/L (<50); Albumin 3.7 g/dL (3.5-5.0); Albumin Globulin Ratio 1.2 (1.0-2.8); Alkaline Phosphatase 46 U/L (38-126); Aspartate Aminotransferase 45 IU/L (17-59); Bilirubin Total 1.7 mg/dL (0.2-1.3); Blood Urea Nitrogen 10 mg/dL (9-20); Calcium 9.2 mg/dL (8.4-10.2); Carbon Dioxide 25 mmol/L (22-32); Chloride 103 mmol/L (98-107); Estimated Glomerular Filt Rate > 60 mL/min (>60); Globulin 3.1 g/dL (1.7-4.1); Glucose 115 mg/dL (70-100); HEMOLYSIS < 15 (0-50); Potassium 3.9 mmol/L (3.4-5.1); Sodium 134 mmol/L (137-145); Total Protein 6.8 g/dL (6.3-8.2)
[2023-03-25] MEDS: MAGNESIUM OXIDE 400 MG TABLET PO (09:13)
--- NOTE | 2023-03-25 09:37 | DI.RAD.S_ITS ---
PROCEDURE: XR HIP W PEL IF DONE LT 2V INDICATIONS: chronic left hip pain TECHNIQUE: 2 views of the hip were acquired. COMPARISON: None. FINDINGS: Bones: No fractures or dislocations. No suspicious bony lesions. The visualized pelvic ring appears intact. Soft tissues: No suspicious soft tissue calcifications or masses. IMPRESSION: No acute bony abnormality. Approved by: Arnav Quintero M.D. on 03/25/2023 at 10:20
--- NOTE | 2023-03-25 09:38 | P.PN_ITS ---
Subjective Subjective Date Patient Seen: 03/25/23 Interval history: Pt still with difficulty breathing and cough but definitely improving. States blood in phlegm is no longer present. Complains of chronic left hip pain after sitting, hip locks-up with standing after sitting in chair or car, pain lasts a couple minutes and it takes him 1-2 minutes to be able to bear weight on the left side. Has been going on for 2 years. No acute injury recalled but played [employer]s. football. Exam Vital Signs (past 8 hours): - 03/25/23 02:00 03/25/23 02:30 03/25/23 03:00 Temperature Pulse Rate 108 H 97 H 106 H Respiratory Rate 53 H 34 H 23 Blood Pressure Pulse Oximetry 95 97 96 Oxygen Flow Rate 03/25/23 03:30 03/25/23 03:57 03/25/23 04:00 Temperature 98.6 F Pulse Rate 102 H 74 98 H Respiratory Rate 37 H 16 41 H Blood Pressure 133/76 133/72 Pulse Oximetry 95 96 95 Oxygen Flow Rate 2 03/25/23 07:36 Temperature 98.4 F Pulse Rate 107 H Respiratory Rate 24 Blood Pressure 148/72 H Pulse Oximetry 96 Oxygen Flow Rate 0 Oxygen Delivery Method Nasal Cannula Oxygen Flow Rate 0 Narrative Exam Narrative: gen: alert, NAD Lungs: tachypneic, able to speak full sentences, CTA CV: tachcardic, regular, no murmur Ext: no edema Neuro: nl affect and speeck Musculoskeletal: no pain with ROM deficit with left hip manipulation Objective Labs 03/25/23 08:45 03/25/23 08:45 Labs: Laboratory Results - last 24 hr 03/24/23 03/25/23 08:35 08:45 WBC 11.1 H RBC 4.59 Hgb 14.3 Hct 41.3 MCV 90.1 MCH 31.1 MCHC 34.5 RDW 13.3 Plt Count 211 Neut % (Auto) 80.9 H Lymph % (Auto) 12.3 L [place] % (Auto) 6.1 Eos % (Auto) 0.3 L Baso % (Auto) 0.4 Neut # (Auto) 9000 H Lymph # (Auto) 1400 [place] # (Auto) 700 Eos # (Auto) 0 Baso # (Auto) 0 Sodium 134 L Potassium 3.9 Chloride 103 Carbon Dioxide 25 BUN 10 Creatinine 0.83 Estimated GFR > 60 BUN/Creatinine Ratio 12.0 Glucose 115 H Calcium 9.2 Total Bilirubin 1.7 H AST 45 ALT 124 H Alkaline Phosphatase 46 Total Protein 6.8 Albumin 3.7 Globulin 3.1 Albumin/Globulin Ratio 1.2 Nasal Screen MRSA (PCR) Not detected PFSH Social History household members: significant other and children Smoking Status: Former smoker alcohol intake: current Assessment & Plan Assessment & Plan narrative: # Acute Hypoxemic Respiratory Failure 2/2 aspiration PNA -CXR with bilateral infiltrates, procal at 3 -patient vomited large amounts before becoming apneic -Without Hx of lung disease -CTA: no P.E., no effusions -on 03/25 eval still tachypneic, tachycardic, sat 90% RA, WBC improving -continue zosyn 1 more day # likely opioid overdose -possibly fentanyl laced in percocet patient took from friend -telemetry monitoring in ICU -Narcan drip now off # Sinus Tachycardia - w/o ischemic changes on ECG - possible due to pneumonia vs anxiety - valium PRN # Elevated ALT -likely pnemonia related -improving # Chronic left hip pain/locking -obtain left hip and pelvis x-rays -will need outpatient ortho eval Pt improving, possible disch home tomorrow on po abx. DVT prophylaxis - SCDs
[2023-03-25] MEDS: SODIUM CHLORIDE NASAL SPRAY 1 SPRAY NASAL (10:29)
--- NOTE | 2023-03-25 10:52 | PC.NURSE ---
Late entry: On 03/23/23 at around 2235 the triage nurse responded to a request to help a patient out of a car. Upon arrival the patient was in the back seat of the car, laying on his left side and snoring and appeared to be heavily intoxicated. His breathing rate was steady within normal limits but he was unresponsive to stimuli. The patient immediately began to vomit though his nose and mouth and then became apneic and appeared to have aspirated his vomit. The nurses aide Kristina was instructed to go get a stretcher and moving help immediately. The nurse's Vocera was not able to call anyone in the department due to a malfunction. The aide returned quickly with two other nurses, Melanie and Shakira Marlow. The patient was then removed from the vehicle, with a slider board and met in the ER with Dr. Trujillo and taken immediately into a trauma bay. RT was called and arrived on sceen shortly entering the trauma room. The patient's ride introduced himself as a close friend. He stated that the patient was at his house, sitting on the couch and was acting normal and then moments later...he was staring off into space and not responding to verbal commands. He stated he didn't know if the patient was on drugs or drinking or diabetic. He also stated that the patient might have been having a seizure. After the patient was treated and was alert and oriented enough to interview, he stated that he couldn't recall what he ingested but it was a pill. He knew he had taken them before. He stated that this was an accidental overdose and he did not wish to .
--- NOTE | 2023-03-25 10:57 | CM.DPC ---
DCP Cont: Per MD, pt making progress but likely will need one more day of IV-Abx for his pneumonia and then home on orals possibly tomorrow. Pt with ongoing hip/groin pain and MD placed order for imaging and then likely need of outpt f/u with Ortho pending imaging results. SW met bedside with pt again and provided the [facility] Provider contracted list for [facility] to establish with PCP and pt very appreciative and pt does not anticipate any concerns or needs at discharge. Plan: SW to follow for plan of d/c home via friend or fiance POV and outpt f/u likely Sunday if medically stable. Fartun Gaffney MSW
[2023-03-25] MEDS: ACETAMINOPHEN 325 MG TABLET 650 MG PO (20:06)
[2023-03-26] VITALS: BP 113/66; PULSE 100; RESP 18; TEMP 37.4; O2SAT 94
[2023-03-26] MEDS: PIPERACILLIN/TAZO 3.375 GM in SODIUM CHLORIDE 0.9% 100 ML IV (01:30)
[2023-03-26] MEDS: SODIUM CHLORIDE 0.9% FLUSH 10 ML IV ×2 (01:30→09:53)
[2023-03-26 04:43] LABS: Add Manual Diff / Slide Review NO; Basophils Absolute Auto 0 /uL (0-100); Basophils Percent Auto 0.2 % (0-2); Eosinophils Absolute Auto 0 /uL (0-450); Eosinophils Percent Auto 0.5 % (2-4); Hematocrit 40.8 % (41-53); Hemoglobin 14.5 g/dL (13.5-17.5); Lymphocytes Absolute Auto 1500 /uL (1100-4500); Lymphocytes Percent Auto 15.7 % (25-40); Mean Corpuscular HGB Conc 35.5 % (30-36); Mean Corpuscular Hemoglobin 32.1 PG (26-34); Mean Corpuscular Volume 90.3 fL (80-100); Monocytes Absolute Auto 600 /uL (0-900); Monocytes Percent Auto 5.9 % (3-14); Neutrophils Absolute Auto 7300 /uL (1500-7000); Neutrophils Percent Auto 77.7 % (50-75); Platelet Count 224 X10^3/uL (150-400); Red Blood Cell Count 4.52 X10^6/uL (4.5-5.9); Red Cell Distribution Width 13.2 % (11.6-14.8); White Blood Cell Count 9.4 X10^3/uL (4.5-11.0)
[2023-03-26 04:58] LABS: Alanine Aminotransferase 102 IU/L (<50); Albumin 3.8 g/dL (3.5-5.0); Albumin Globulin Ratio 1.2 (1.0-2.8); Alkaline Phosphatase 46 U/L (38-126); Aspartate Aminotransferase 33 IU/L (17-59); BUN Creatinine Ratio 14.6 (6-22); Bilirubin Total 1.8 mg/dL (0.2-1.3); Blood Urea Nitrogen 13 mg/dL (9-20); Calcium 8.8 mg/dL (8.4-10.2); Carbon Dioxide 25 mmol/L (22-32); Chloride 102 mmol/L (98-107); Estimated Glomerular Filt Rate > 60 mL/min (>60); Globulin 3.1 g/dL (1.7-4.1); Glucose 100 mg/dL (70-100); HEMOLYSIS < 15 (0-50); Potassium 3.9 mmol/L (3.4-5.1); Sodium 135 mmol/L (137-145); Total Protein 6.9 g/dL (6.3-8.2)
[2023-03-26 06:00] VITALS: BP 120/73; PULSE 90; RESP 18; TEMP 36.9; O2SAT 94
--- NOTE | 2023-03-26 06:42 | PC.NURSE ---
Glove Boarder Note-Upon initial assessment, patient was febrile 100.5, HR 110, Tylenol given, afebrile and HR 90 by AM, stating I feel better Instructed and encouraged on I.S. use, also encouraged increase fluids and mobility.
--- NOTE | 2023-03-26 09:13 | PM.DS.1 ---
History of Present Illness History of Present Illness Chief complaint: syncope/poss seizure Narrative: 30 y/o brought by a friend after he became unresponsive from drugs that he took. In the ED hypoxemic, requires 5-6 L of oxygen. Suspected synthetic narcotic as the toxscreen positive only for pot. In the ED he was doing better after the Narcan but improvement did not last too long so started on Narcan drip. Borderline tachycardic, not hypotensive. Discharge Providers Provider Date of admission: 03/24/23 03:48 Discharge Date: 03/26/23 Primary care physician: None, will establish soon. Consults: None. Discharge provider: Gustavo Long MD Summary Hospital Course Discharge Diagnosis: 1. Acute Hypoxemic Respiratory Failure 2/2 aspiration PNA -CXR with bilateral infiltrates, procal at 3 -patient vomited large amounts before becoming apneic -Without Hx of lung disease -CTA: no P.E., no effusions -weaned off O2. 2. Opioid overdose (fentanyl), improved. -possibly fentanyl laced in percocet patient took from friend -telemetry monitoring in ICU -Narcan drip now off 3. Sinus Tachycardia, resolved. - w/o ischemic changes on ECG - possible due to pneumonia vs anxiety - valium PRN 4. Elevated ALT, improving. -likely pnemonia related -improving 5. Chronic left hip pain/locking, stable. -obtain left hip and pelvis x-rays -will need outpatient ortho eval Hospital Course: He was admitted with acute hypoxemic respiratory failure secondary to aspiration. This happened in context of an opiate overdose. The patient improved with antibiotics and was able to wean off from oxygen. His respiratory status also improved. On the day of discharge he was breathing on room air, within normal rate and effort. His lungs were notable only for some scattered rhonchi. His tachycardia had resolved. The patient was advised against using opiates and reminded of the grave risk of from overdose. He is agreeable to taking several more days of oral antibiotics at home. He does not have a PCP, but will establish with one. Status at Discharge Cognitive/behavioral status at discharge: oriented Functional status at discharge: independent ambulation Overall status at discharge: patient is back to baseline Time Spent with Patient Time spent: Greater than 30 minutes Exam Vital Signs (past 8 hours): - 03/26/23 06:00 Temperature 98.4 F Pulse Rate 90 Respiratory Rate 18 Blood Pressure 120/73 Pulse Oximetry 94 Oxygen Delivery Method Room Air Oxygen Flow Rate 0 Narrative Exam Narrative: NAD, oriented with fluent speech. Neck is supple, midline trachea. Lungs are notable for regular effort and rate, scattered rhonchi are heard. Heart is regular. Abdomen is soft, nontender. Extremities are free of edema, skin is free of rash or lesions. Objective Imaging CT scan - chest: Radiologist's impression: 1. Bilateral pulmonary infiltrates consistent with pneumonia. No pleural effusions. 2. No evidence of pulmonary embolism, aortic dissection or aneurysm Chest x-ray: Radiologist's impression: Diffuse bilateral pulmonary opacities are suspicious for pneumonia or edema. Hip Xray: Radiologist's impression: IMPRESSION: No acute bony abnormality. Labs 03/26/23 04:01 03/26/23 04:01 Labs: Laboratory Results - last 24 hr 03/25/23 03/26/23 08:45 04:01 WBC 9.4 RBC 4.52 Hgb 14.5 Hct 40.8 L MCV 90.3 MCH 32.1 MCHC 35.5 RDW 13.2 Plt Count 224 Neut % (Auto) 77.7 H Lymph % (Auto) 15.7 L [place] % (Auto) 5.9 Eos % (Auto) 0.5 L Baso % (Auto) 0.2 Neut # (Auto) 7300 H Lymph # (Auto) 1500 [place] # (Auto) 600 Eos # (Auto) 0 Baso # (Auto) 0 Sodium 134 L 135 L Potassium 3.9 3.9 Chloride 103 102 Carbon Dioxide 25 25 BUN 10 13 Creatinine 0.83 0.89 Estimated GFR > 60 > 60 BUN/Creatinine Ratio 12.0 14.6 Glucose 115 H 100 Calcium 9.2 8.8 Total Bilirubin 1.7 H 1.8 H AST 45 33 ALT 124 H 102 H Alkaline Phosphatase 46 46 Total Protein 6.8 6.9 Albumin 3.7 3.8 Globulin 3.1 3.1 Albumin/Globulin Ratio 1.2 1.2 [facility] Social History household members: significant other and children Smoking Status: Former smoker alcohol intake: current Discharge Assessment & Plan Assessment and Plan Assessment: 1. Opiate overdose, present on admission and improved. 2. Aspiration pneumonia, present on admission and improved. 3. Acute hypoxic respiratory failure, present on admission and resolved. 4. Opiate abuse, present on admission and active. Plan of Treatment: Given 1 dose of ceftriaxone at the time of discharge. He will be discharged with 5 additional days of Augmentin t.i.d.. He is asked to follow up with primary care, he will establish. He is also advised of the grave risk of opiate overdose and as well as reminded of naloxone. Discharge Plan Discharge Plan Patient Disposition: Home Provider Discharge Comment: Stable for discharge, off O2. Discharge orders & Medications Prescriptions: New amoxicillin-pot clavulanate [Augmentin] 500-125 mg tablet 1 tab PO Q8H Qty: 15 0RF Medication counseling provided by Pharmacist: No Discharge Health Status Multidrug resistant organism: No MDRO Diet/Activity/Treatments Diet: Regular Skin/Wound/Dressing Care Report to your healthcare provider any signs of infection, such as:: chills, fever and night sweats Visit Report/Discharge Packet Instructions: Naloxone for Opiate Overdose - [facility] Stand Alone Forms: Patient Portal/API, Naloxone Standing Order [facility]
--- NOTE | 2023-03-26 09:30 | CM.DPNOTE ---
Addendum entered by ARMANDO Barragan 03/26/23 11:02: Per RN, pt inquired about medical excuse form. CERTIFIED VEHICLE FIRE INVESTIGATOR completed form with provider's signature. CERTIFIED VEHICLE FIRE INVESTIGATOR entered room and introduced self and role. Pt resting in bed. Appreciative of medical excuse form. Denies other CM needs at this time, pt's mother will be here soon to transport home [place] Original Note: DCP Note CERTIFIED VEHICLE FIRE INVESTIGATOR reviewed EMR. Per previous CM note, no CM needs identified, previous CERTIFIED VEHICLE FIRE INVESTIGATOR provided PCP list to pt. Per chart, pt to dc home today with family. CERTIFIED VEHICLE FIRE INVESTIGATOR attempted to meet with pt, but pt was in the shower. per RN, likely no CM needs. Plan: home with family today. CM team will continue to follow as needed. ARMNADO Barragan
[2023-03-26] MEDS: cefTRIAXone 1,000 MG in SODIUM CHLORIDE 0.9% 100 ML 200 MG IV (09:52)
[2023-03-26] MEDS: MAGNESIUM OXIDE 400 MG TABLET PO (09:53)
[2023-03-26 10:48] VITALS: BP 127/72
--- NOTE | 2023-03-26 12:51 | PC.NURSE ---
Reviewed discharge instructions with patient, and he states understanding and has no further questions or concerns at this time. IV's removed intact. Patient ambulating around room with his sister at bedside. Tolerating po's, and took a shower this morning. Patient was escorted out by [employer] to be picked up by his family.
== END 2023-03-26 12:56 | disposition home or self-care (01) | DRG 812 ==
LOC: ED 03-24 00:21 → ICU 03-24 13:05 → AC 03-26 06:16 → ICU 03-26 06:16
PROVIDERS: Student in an Organized Health Care Education/Training Program; Admitting Provider Internal Medicine; Emergency Provider Emergency Medicine; Referring Provider Emergency Medicine; Visit Provider Internal Medicine
DX: T40.411A Poisoning by fentanyl or fentanyl analogs, accidental (unintentional), initial encounter (principal); J96.01 Acute respiratory failure with hypoxia; J69.0 Pneumonitis due to inhalation of food and vomit; R00.0 Tachycardia, unspecified; M25.552 Pain in left hip; Z87.891 Personal history of nicotine dependence
CPT/HCPCS: 36415; 71045; 71275; 73502; 80053; 80305; 80320; 83690; 83735; 84145; 85025; 87797; 93005; 93010; 96365; 96366; 96368; 96375; 96376; 99285; 99291; 99292; J0696; J2310; J2405; J2543; J3475; Q9967